=== PATIENT | male | born 1935 | race Caucasian/White ===

== ENCOUNTER 2018-04-29 18:22 | Emergency (ER) | payer MEDICARE, BC ==
[~2018-04-29] VITALS: Ht 175.3 cm; Wt 68.8 kg
[2018-04-29 18:51] VITALS: BP 155/78
[2018-04-29] MEDS ORDERED: TETanus/Pertussis (Acell)/Diphther VAC/PF (Tdap-Adult) 0.5ml syringe IMVAC ONE (20:50)
== END 2018-04-29 21:07 | disposition home or self-care (01) ==
LOC: ER 18:23
DX: S01.81XA Laceration without foreign body of other part of head, initial encounter (principal); M19.90 Unspecified osteoarthritis, unspecified site; Z88.0 Allergy status to penicillin; W22.8XXA Striking against or struck by other objects, initial encounter; Y93.89 Activity, other specified; Y92.89 Other specified places as the place of occurrence of the external cause; Y99.9 Unspecified external cause status
CPT/HCPCS: 12013; 90471; 90715; 99283

== ENCOUNTER 2021-12-23 02:01 | Inpatient (IN) | payer MEDICARE ==
[~2021-12-23] VITALS: Ht 172.7 cm; Wt 81.8 kg
[2021-12-23 09:56] LABS: BASOPHILS % (AUTO) 0.4 % (0-1); EOSINOPHILS % (AUTO) 0 % (0-6); HEMATOCRIT 38.6 % (42.0-52.0); HEMOGLOBIN 13.2 g/dl (14.0-17.9); LYMPHOCYTES # (AUTO) 0.7 X10'3 (1.1-4.8); LYMPHOCYTES % (AUTO) 7.4 % (21-51); MEAN CORPUSCULAR HEMOGLOBIN 32.7 PG (27.0-31.0); MEAN CORPUSCULAR HGB CONC 34.2 g/dL (33.0-36.5); MEAN CORPUSCULAR VOLUME 95.8 FL (78-98); MEAN PLATELET VOLUME 8.3 FL (7.4-10.4); MONOCYTES # (AUTO) 0.8 X10'3 (0-0.9); MONOCYTES % (AUTO) 8.5 % (2-12); NEUTROPHILS # (AUTO) 8.2 X10'3 (1.8-7.7); NEUTROPHILS % (AUTO) 83.7 % (42-75); PLATELET COUNT 361 X10'3 (140-440); RED BLOOD COUNT 4.03 X10'6 (4.70-6.10); RED CELL DISTRIBUTION WIDTH 13.2 % (11.5-14.5); WHITE BLOOD COUNT 9.8 X10'3 (4.5-11.0)
[2021-12-23 10:14] LABS: ALANINE AMINOTRANSFERASE 27 U/L (12-78); ALBUMIN 3.8 G/DL (3.4-5.0); ALBUMIN/GLOBULIN RATIO 0.7 (1.1-1.5); ALKALINE PHOSPHATASE 106 IU/L (46-116); ANION GAP 7 (8-16); ASPARTATE AMINO TRANSFERASE 25 U/L (10-37); BILIRUBIN,TOTAL 0.4 MG/DL (0.1-1.0); BLOOD UREA NITROGEN 23 MG/DL (7-18); BUN/CREATININE RATIO 24.5 (5.4-32.0); CALCIUM 9.6 MG/DL (8.5-10.1); CHLORIDE 105 MMOL/L (99-107); CREATININE 0.94 MG/DL (0.60-1.10); POTASSIUM 4.6 MMOL/L (3.5-5.1); SODIUM 143 MMOL/L (135-145); TOTAL CARBON DIOXIDE 30.6 MMOL/L (24-32); TOTAL PROTEIN 9.3 G/DL (6.4-8.2); eGFR 76 ML/MIN
[2021-12-23 10:15] LABS: GLUCOSE 112 MG/DL (70-104)
[2021-12-23 10:48] LABS: CLARITY,URINE CLEAR (Clear); COLOR,URINE YELLOW (Yellow); GLUCOSE, URINE NEGATIVE (Neg); KETONES,URINE NEGATIVE (Neg); LEUKOCYTE ESTERASE ,URINE NEGATIVE (Neg); NITRITES, URINE NEGATIVE (Neg); OCCULT BLOOD,URINE NEGATIVE (Neg); PROTEIN,URINE NEGATIVE (Neg); UROBILINOGEN,URINE 0.2 E.U/dL (0.2-1.0)
[2021-12-23 10:49] LABS: UA COLLECTION TYPE NON-SPECIFIED
[2021-12-23] MEDS ORDERED: ondansetron 4mg rapidly disintigrating tab PO ONE (11:20)
[2021-12-23] MEDS ORDERED: meclizine 12.5mg tablet PO ONE (11:20)
[2021-12-23] MEDS ORDERED: POTASSIUM BICARB 20meq eff tab 20 MEQ TABLET.EFF PO PRN ×2 (12:25)
[2021-12-23] MEDS ORDERED: PERFLUTREN PROTEIN-A MICROSPHR (Optison) 0.22 MG/ML 3ML VIAL IV ONE (12:25)
[2021-12-23] MEDS ORDERED: mag hydrox/Alum hydrox/simeth 30ml oral suspension PO PRN (12:25)
[2021-12-23] MEDS ORDERED: ondansetron/PF 4mg/2ml inj IV PRN (12:25)
[2021-12-23] MEDS ORDERED: acetaminophen 325mg tablet PO PRN (12:25)
[2021-12-23] MEDS ORDERED: potassium CL 10mEq/100ml bag 100 ML IV PRN (12:25)
[2021-12-23] MEDS ORDERED: magnesium 4gm in 100ml NS 100 ML IV PRN (12:25)
[2021-12-23] MEDS ORDERED: magnesium 2GM in 50ml NS 50 ML IV PRN (12:25)
[2021-12-23] MEDS ORDERED: morphine 2 MG/ML inj. syringe IV PRN (12:25)
[2021-12-23] MEDS ORDERED: magnesium hydroxide 30ml (MOM) UD suspension PO PRN (12:25)
[2021-12-23] MEDS ORDERED: magnesium Cl slow-release 64mg tablet PO PRN (12:25)
[2021-12-23 12:50] LABS: MAGNESIUM 2.8 MG/DL (1.5-2.4)
--- NOTE | 2021-12-23 13:27 | NUR ---
assumed care of pt from Jenny OVALLE, pt is resting quietly on gurney, resp even and unlabored, being evaluated by Dr Dawn, Dr Dawn gave verbal order for one more troponin, neurotele at bedside. Pt amb with slow steady gait using walker
--- NOTE | 2021-12-23 14:03 | NUR ---
PT TO CT
[2021-12-23] MEDS: normal saline 1000ml 1,000 ML IV SCH (14:48)
--- NOTE | 2021-12-23 15:58 | NUR ---
attempted report, nurse will call back
--- NOTE | 2021-12-23 16:42 | NUR ---
Patient in room [facility] 4009. I have received report from Estella and had the opportunity to ask questions and assume patient care. Addendum: 12/23/21 at 1821 by Maricruz Ferrell RN Pt arrived to the floor approximately 1800. Spoke with patient and daughter Dali at bedside.
--- NOTE | 2021-12-23 16:53 | NUR ---
REPORT GIVEN TO MISHA ACEVES
--- NOTE | 2021-12-23 17:25 | NUR ---
pt received in 4009C from ER and tucked into bed. C/O mild neck pain. Medicated in ER. Pt in no distress. IV NS connected to saline lock running at 70mls/hour. Pt given dinner tray. Dtr at bedside.
[2021-12-23 18:00] VITALS: BP 152/72
--- NOTE | 2021-12-23 18:36 | NUR ---
During assessment of patient, patient was able to eat his meal/drink fluids without any issues.
--- NOTE | 2021-12-23 18:38 | NUR ---
Problems reprioritized. Patient report given, questions answered & plan of care reviewed with
--- NOTE | 2021-12-23 19:47 | NUR ---
REASSMT OF MORPHINE GIVEN EARLIER NOT DOCUMENTED. PATIENT ASKING FOR NORCO, WHICH IS WHAT HE TAKES NORMALLY AT HOME. WILL NEED TO CALL HOSPITALIST TO GET THIS ORDERED FOR HIM
[2021-12-23] MEDS: K and/or MAG REPLACEMENT MC SCH (20:00)
[2021-12-23] MEDS: HYDROcodone/acetaminophen 5mg/325mg tablet PO PRN (20:14)
[2021-12-23] MEDS: docusate sod 100mg capsule PO SCH (20:15)
[2021-12-23 22:00] VITALS: BP 126/70
[2021-12-24] MEDS: normal saline 1000ml 1,000 ML IV SCH (02:43)
[2021-12-24] MEDS: HYDROcodone/acetaminophen 5mg/325mg tablet PO PRN ×2 (03:21→09:46)
[2021-12-24 06:00] VITALS: BP 133/57
--- NOTE | 2021-12-24 06:29 | NUR ---
Problems reprioritized. Patient report given, questions answered & plan of care reviewed with JUANITO OVALLE.
--- NOTE | 2021-12-24 06:47 | NUR ---
Patient in room [facility]TH[facility] 4009. I have received report from Bisi ACEVES and had the opportunity to ask questions and assume patient care.
[2021-12-24 07:01] LABS: BASOPHILS % (AUTO) 0.5 % (0-1); EOSINOPHILS % (AUTO) 0.5 % (0-6); HEMOGLOBIN 11.2 g/dl (14.0-17.9); LYMPHOCYTES # (AUTO) 0.9 X10'3 (1.1-4.8); LYMPHOCYTES % (AUTO) 12.7 % (21-51); MEAN CORPUSCULAR HEMOGLOBIN 32.5 PG (27.0-31.0); MEAN CORPUSCULAR HGB CONC 33.8 g/dL (33.0-36.5); MEAN PLATELET VOLUME 8.9 FL (7.4-10.4); MONOCYTES # (AUTO) 0.9 X10'3 (0-0.9); MONOCYTES % (AUTO) 11.9 % (2-12); NEUTROPHILS # (AUTO) 5.5 X10'3 (1.8-7.7); NEUTROPHILS % (AUTO) 74.4 % (42-75); PLATELET COUNT 276 X10'3 (140-440); RED BLOOD COUNT 3.44 X10'6 (4.70-6.10); RED CELL DISTRIBUTION WIDTH 13.3 % (11.5-14.5); WHITE BLOOD COUNT 7.4 X10'3 (4.5-11.0)
[2021-12-24 07:02] LABS: ALBUMIN 3.1 G/DL (3.4-5.0); ANION GAP 6 (8-16); BLOOD UREA NITROGEN 21 MG/DL (7-18); BUN/CREATININE RATIO 23.6 (5.4-32.0); CALCIUM 8.9 MG/DL (8.5-10.1); CHLORIDE 109 MMOL/L (99-107); CREATININE 0.89 MG/DL (0.60-1.10); GLUCOSE 86 MG/DL (70-104); POTASSIUM 3.9 MMOL/L (3.5-5.1); SODIUM 145 MMOL/L (135-145); TOTAL CARBON DIOXIDE 30.1 MMOL/L (24-32); eGFR 81 ML/MIN
[2021-12-24] MEDS: docusate sod 100mg capsule PO SCH (07:30)
[2021-12-24] MEDS: K and/or MAG REPLACEMENT MC SCH (07:32)
[2021-12-24] MEDS ORDERED: enoxaparin 40mg/0.4ml syringe SUBCUT SCH (08:00)
[2021-12-24 10:00] VITALS: BP 114/60
[2021-12-24] MEDS ORDERED: IBUP-1986 PO (14:10)
--- NOTE | 2021-12-24 15:39 | NUR ---
Patient was discharge home with family. Discharge information was discussed with patient and family whom both verbalized understanding. Staff then assisted patient to personal vehicle.
[2021-12-24] MEDS ORDERED: HYDR-3965 PO (17:53)
--- NOTE | 2021-12-24 18:33 | NUR ---
Student documentation: I have reviewed and agree with all interventions, assessments performed and documented by Sushma OVALLE.
== END 2021-12-24 15:39 | disposition home or self-care (01) | DRG 562 ==
LOC: ER 02:03 → ED HOLD 12:28 → ORTHO 4S 17:09
PROVIDERS: ADMIT Family Medicine; ATTEND Family Medicine
DX: S42.001A Fracture of unspecified part of right clavicle, initial encounter for closed fracture (principal); I21.A1 Myocardial infarction type 2; E86.0 Dehydration; M15.9 Polyosteoarthritis, unspecified; R29.6 Repeated falls; W18.39XA Other fall on same level, initial encounter; Y93.89 Activity, other specified; Y92.89 Other specified places as the place of occurrence of the external cause; Y99.8 Other external cause status; Z88.0 Allergy status to penicillin; Z88.8 Allergy status to other drugs, medicaments and biological substances
CPT/HCPCS: 36415; 70450; 70551; 71045; 72125; 73030; 80048; 80053; 81003; 83735; 84484; 85025; 87081; 93306; 97116; 97162; 97530; 99285; G0378; J1650; J2270; J7030; J8597

== ENCOUNTER 2023-05-09 18:19 | Inpatient (IN) | payer MEDICARE ==
[~2023-05-09] VITALS: Ht 175.3 cm; Wt 79.1 kg
[~2023-05-09 18:19] MED LIST: IBUP-1986 PO
--- NOTE | 2023-05-09 20:07 | NUR ---
pt headed to ct, nursing assessment not yet complete
[2023-05-09 20:19] LABS: BASOPHILS % (AUTO) 0.6 % (0-1); HEMATOCRIT 33.2 % (42.0-52.0); LYMPHOCYTES # (AUTO) 0.6 X10'3 (1.1-4.8); MONOCYTES # (AUTO) 1.3 X10'3 (0-0.9); NEUTROPHILS # (AUTO) 4.1 X10'3 (1.8-7.7)
[2023-05-09 20:21] LABS: EOSINOPHILS % (AUTO) 0 % (0-6); HEMOGLOBIN 11.1 g/dl (14.0-17.9); LYMPHOCYTES % (AUTO) 10.3 % (21-51); MEAN CORPUSCULAR HEMOGLOBIN 32.6 PG (27.0-31.0); MEAN CORPUSCULAR HGB CONC 33.4 g/dL (33.0-36.5); MEAN CORPUSCULAR VOLUME 97.8 FL (78-98); MEAN PLATELET VOLUME 8.6 FL (7.4-10.4); MONOCYTES % (AUTO) 21.4 % (2-12); NEUTROPHILS % (AUTO) 67.7 % (42-75); PLATELET COUNT 208 X10'3 (140-440); RED CELL DISTRIBUTION WIDTH 13.5 % (11.5-14.5)
[2023-05-09 20:26] LABS: APTT 28 SECONDS (22-32); INR 1.1 INR; PROTHROMBIN TIME 11.5 SECONDS (9.0-12.0)
[2023-05-09 20:28] LABS: ALANINE AMINOTRANSFERASE 28 U/L (12-78); ALBUMIN 3.1 G/DL (3.4-5.0); ALBUMIN/GLOBULIN RATIO 0.5 (1.1-1.5); ALKALINE PHOSPHATASE 81 IU/L (46-116); ANION GAP 6 (8-16); ASPARTATE AMINO TRANSFERASE 31 U/L (10-37); BILIRUBIN,TOTAL 0.5 MG/DL (0.1-1.0); BLOOD UREA NITROGEN 27 MG/DL (7-18); BUN/CREATININE RATIO 22.3 (10.0-20.0); CALCIUM 9.1 MG/DL (8.5-10.1); CHLORIDE 103 MMOL/L (99-107); CREATININE 1.21 MG/DL (0.60-1.10); POTASSIUM 4.6 MMOL/L (3.5-5.1); SODIUM 136 MMOL/L (135-145); TOTAL CARBON DIOXIDE 27.2 MMOL/L (24-32); eCRCL 41 ML/MIN; eGFR 56 ML/MIN
[2023-05-09 20:41] LABS: GLUCOSE 98 MG/DL (70-104)
[2023-05-09 21:59] LABS: ETHANOL < 10 MG/DL (<10)
[2023-05-09 22:07] LABS: BILIRUBIN,URINE NEGATIVE (Neg); CLARITY,URINE CLEAR (Clear); GLUCOSE, URINE NEGATIVE (Neg); KETONES,URINE NEGATIVE (Neg); LEUKOCYTE ESTERASE ,URINE NEGATIVE (Neg); NITRITES, URINE NEGATIVE (Neg); OCCULT BLOOD,URINE NEGATIVE (Neg); PROTEIN,URINE TRACE mg/dl (Neg)
[2023-05-09 22:08] LABS: COLOR,URINE DARK YELLOW (Yellow); UA COLLECTION TYPE NON-SPECIFIED
[2023-05-09 22:14] LABS: BACTERIA,URINE FEW /HPF (Neg); HYALINE CASTS 0-3 /LPF (NEGATIVE); MUCUS STRANDS MANY /LPF (Neg); RBC,URINE 0-2 /HPF (0-2); SQUAMOUS EPITHELIAL CELL,UR FEW /LPF (FEW); WBC,URINE 0-4 /HPF (0-4)
[2023-05-09 22:16] LABS: TRANSITIONAL EPI CELLS,URINE FEW /HPF
[2023-05-09] MEDS ORDERED: morphine 2 MG/ML inj. syringe IV ONE (22:30)
[2023-05-09] MEDS ORDERED: magnesium 2GM in 50ml NS 50 ML IV PRN (22:35)
[2023-05-09] MEDS ORDERED: ondansetron/PF 4mg/2ml inj IV PRN (22:35)
[2023-05-09] MEDS ORDERED: magnesium 4gm in 100ml NS 100 ML IV PRN (22:35)
[2023-05-09] MEDS ORDERED: potassium Cl 40MEQ/1/2NS 520ml 520 ML IV PRN (22:35)
[2023-05-09] MEDS ORDERED: potassium Cl 20 mEq SR tablet PO PRN ×2 (22:35)
[2023-05-09] MEDS ORDERED: magnesium Cl slow-release 64mg tablet PO PRN (22:35)
[2023-05-09] MEDS ORDERED: magnesium hydroxide 30ml (MOM) UD suspension PO PRN (22:35)
[2023-05-09] MEDS ORDERED: mag hydrox/Alum hydrox/simeth 30ml oral suspension PO PRN (22:35)
--- NOTE | 2023-05-09 22:49 | NUR ---
Patient placed on hospital bed for comfort.
--- NOTE | 2023-05-09 23:33 | NUR ---
pt here for general weakness associated with incontinence per daughter, daughter states he has been seeing numbers on things that do not have numbers and noticed this morning his change in condition
--- NOTE | 2023-05-09 23:46 | NUR ---
Checked in with patient and family to ensure patient pain under control after morphine and placement onto hospital bed. Patient much more comfortable, falling asleep. Patient family encouraged to go home and get sleep. ER direct line given to them to call for updates.
[2023-05-10] MEDS: morphine 2 MG/ML inj. syringe IV PRN ×2 (04:59→15:36)
--- NOTE | 2023-05-10 07:15 | NUR ---
Patient in room [facility]TH[facility] 4012. I have received report from James and had the opportunity to ask questions and assume patient care.
[2023-05-10 07:20] VITALS: BP 117/58; PULSE 69; RESP 19; TEMP 97.3; O2SAT 93
[2023-05-10] MEDS: K and/or MAG REPLACEMENT MC SCH ×2 (07:25→19:22)
[2023-05-10] MEDS ORDERED: enoxaparin 40mg/0.4ml syringe SUBCUT SCH (08:00)
[2023-05-10] MEDS: docusate sod 100mg capsule PO SCH ×2 (08:23→20:00)
[2023-05-10 08:46] LABS: EOSINOPHILS % (AUTO) 0.1 % (0-6); HEMOGLOBIN 10.4 g/dl (14.0-17.9); MEAN PLATELET VOLUME 8.6 FL (7.4-10.4); NEUTROPHILS # (AUTO) 2.3 X10'3 (1.8-7.7); RED BLOOD COUNT 3.21 X10'6 (4.70-6.10); WHITE BLOOD COUNT 4.1 X10'3 (4.5-11.0)
[2023-05-10 08:48] LABS: BASOPHILS % (AUTO) 0.8 % (0-1); HEMATOCRIT 31.2 % (42.0-52.0); LYMPHOCYTES # (AUTO) 0.7 X10'3 (1.1-4.8); LYMPHOCYTES % (AUTO) 17.8 % (21-51); MEAN CORPUSCULAR HEMOGLOBIN 32.5 PG (27.0-31.0); MEAN CORPUSCULAR HGB CONC 33.4 g/dL (33.0-36.5); MEAN CORPUSCULAR VOLUME 97.3 FL (78-98); MONOCYTES # (AUTO) 1.1 X10'3 (0-0.9); MONOCYTES % (AUTO) 26.2 % (2-12); NEUTROPHILS % (AUTO) 55.1 % (42-75); PLATELET COUNT 183 X10'3 (140-440)
[2023-05-10 09:02] LABS: ALANINE AMINOTRANSFERASE 22 U/L (12-78); ALBUMIN 2.7 G/DL (3.4-5.0); ALBUMIN/GLOBULIN RATIO 0.5 (1.1-1.5); ALKALINE PHOSPHATASE 71 IU/L (46-116); ANION GAP 5 (8-16); ASPARTATE AMINO TRANSFERASE 41 U/L (10-37); BILIRUBIN,TOTAL 0.5 MG/DL (0.1-1.0); BLOOD UREA NITROGEN 22 MG/DL (7-18); CALCIUM 8.5 MG/DL (8.5-10.1); CHLORIDE 104 MMOL/L (99-107); CHOL/HDL RATIO 2.3 (0.00-4.99); CHOLESTEROL 90 MG/DL (0-200); HDL CHOLESTEROL 39 MG/DL (35-60); LDL CHOLESTEROL 45 MG/DL (50-100); MAGNESIUM 2.2 MG/DL (1.5-2.4); POTASSIUM 3.9 MMOL/L (3.5-5.1); SODIUM 136 MMOL/L (135-145); TOTAL CARBON DIOXIDE 26.7 MMOL/L (24-32); TOTAL PROTEIN 8.3 G/DL (6.4-8.2); TRIGLYCERIDES 26 MG/DL (20-135); eCRCL 50 ML/MIN; eGFR 70 ML/MIN
[2023-05-10 09:04] LABS: GLUCOSE 83 MG/DL (70-104)
[2023-05-10 10:17] VITALS: BP 107/51; PULSE 79; RESP 14; TEMP 97.5; O2SAT 95
[2023-05-10] MEDS ORDERED: GABA-530 PO (11:37)
--- NOTE | 2023-05-10 12:21 | NUR ---
Pt to MRI
[2023-05-10 14:24] VITALS: BP 106/52; PULSE 88; RESP 18; TEMP 97.7; O2SAT 95
[2023-05-10 18:00] VITALS: BP 113/53; PULSE 75; RESP 13; TEMP 97.5; O2SAT 91
[2023-05-10] MEDS ORDERED: dexamethasone 4mg tablet PO ONE ×2 (18:10)
[2023-05-10] MEDS ORDERED: DEXAMETHASONE 6 MG TABLET PO ONE (18:15)
--- NOTE | 2023-05-10 18:34 | NUR ---
Problems reprioritized. Patient report given, questions answered & plan of care reviewed with
[2023-05-10 20:00] VITALS: RESP 16; O2SAT 93
[2023-05-10] MEDS: enoxaparin 40mg/0.4ml syringe SUBCUT SCH (20:56)
[2023-05-10] MEDS ORDERED: gabapentin 300mg capsule PO SCH (21:00)
[2023-05-10 22:00] VITALS: BP 121/61; PULSE 72; RESP 16; TEMP 97.9; O2SAT 93
[2023-05-11] MEDS: acetaminophen 325mg tablet PO PRN ×2 (03:30→14:13)
[2023-05-11 05:59] LABS: D-DIMER 0.87 MG/L FEU (0-0.50)
[2023-05-11 06:00] VITALS: BP 127/55; PULSE 60; RESP 16; TEMP 98.2
[2023-05-11 06:02] LABS: BASOPHILS % (AUTO) 0.7 % (0-1); EOSINOPHILS % (AUTO) 0.1 % (0-6); HEMATOCRIT 32.1 % (42.0-52.0); HEMOGLOBIN 10.9 g/dl (14.0-17.9); LYMPHOCYTES # (AUTO) 0.4 X10'3 (1.1-4.8); LYMPHOCYTES % (AUTO) 14.8 % (21-51); MEAN CORPUSCULAR HGB CONC 33.9 g/dL (33.0-36.5); MEAN CORPUSCULAR VOLUME 97.2 FL (78-98); MEAN PLATELET VOLUME 9.4 FL (7.4-10.4); MONOCYTES # (AUTO) 0.3 X10'3 (0-0.9); MONOCYTES % (AUTO) 9.4 % (2-12); NEUTROPHILS # (AUTO) 2.2 X10'3 (1.8-7.7); PLATELET COUNT 181 X10'3 (140-440); RED CELL DISTRIBUTION WIDTH 13.4 % (11.5-14.5); WHITE BLOOD COUNT 2.9 X10'3 (4.5-11.0)
[2023-05-11 06:09] LABS: % IRON SATURATION 11 % (11-46); IRON 21 UG/DL (53-167); TOTAL IRON BINDING CAPACITY 189 UG/DL (259-388)
[2023-05-11] MEDS: morphine 2 MG/ML inj. syringe IV PRN (06:31)
[2023-05-11 06:47] LABS: ALANINE AMINOTRANSFERASE 29 U/L (12-78); ALBUMIN 2.5 G/DL (3.4-5.0); ALBUMIN/GLOBULIN RATIO 0.4 (1.1-1.5); ALKALINE PHOSPHATASE 70 IU/L (46-116); ANION GAP 8 (8-16); ASPARTATE AMINO TRANSFERASE 49 U/L (10-37); BILIRUBIN,TOTAL 0.4 MG/DL (0.1-1.0); BLOOD UREA NITROGEN 22 MG/DL (7-18); BUN/CREATININE RATIO 27.8 (10.0-20.0); C-REACTIVE PROTEIN 4.51 MG/DL (0.0-0.5); CALCIUM 8.4 MG/DL (8.5-10.1); CHLORIDE 102 MMOL/L (99-107); CREATININE 0.79 MG/DL (0.60-1.10); FERRITIN 146 NG/ML (26-388); LACTATE DEHYDROGENASE 117 U/L (85-227); MAGNESIUM 2.1 MG/DL (1.5-2.4); SODIUM 134 MMOL/L (135-145); TOTAL CARBON DIOXIDE 24.1 MMOL/L (24-32); TOTAL PROTEIN 8.1 G/DL (6.4-8.2); eCRCL 63 ML/MIN; eGFR > 90 ML/MIN
[2023-05-11 06:57] LABS: GLUCOSE 103 MG/DL (70-104)
[2023-05-11 08:00] VITALS: RESP 20
[2023-05-11] MEDS ORDERED: DEXAMETHASONE 6 MG TABLET PO SCH (08:00)
[2023-05-11] MEDS: docusate sod 100mg capsule PO SCH (08:00)
[2023-05-11] MEDS: K and/or MAG REPLACEMENT MC SCH (08:00)
[2023-05-11] MEDS ORDERED: aspirin 81mg tab.chew PO SCH (08:30)
[2023-05-11] MEDS: enoxaparin 40mg/0.4ml syringe SUBCUT SCH (08:30)
[2023-05-11 10:00] VITALS: BP 132/63; PULSE 71; RESP 20; TEMP 97.9; O2SAT 99
[2023-05-11 10:07] LABS: PLATELET ESTIMATE NORMAL; TOTAL CELLS COUNTED 100
[2023-05-11 10:09] LABS: ROULEAUX 1+
[2023-05-11] MEDS ORDERED: normal saline 1000ml 1,000 ML IVB ONE (13:15)
[2023-05-11] MEDS ORDERED: ACET-1008 PO (14:23)
[2023-05-11] MEDS ORDERED: ASPI81TA53 PO (14:23)
[2023-05-11] MEDS ORDERED: DEXA6TAB PO (14:23)
[2023-05-11] MEDS ORDERED: AZIT500T PO (15:27)
--- NOTE | 2023-05-11 18:41 | NUR ---
Agree with assessment by Phoebe ACEVES
== END 2023-05-11 17:40 | disposition home or self-care (01) | DRG 178 ==
LOC: ER 18:19 → ED HOLD 22:40 → EDBEDREQ 05-10 02:07 → ORTHO 4S 05-10 07:10
PROVIDERS: ADMIT Internal Medicine; ATTEND Family Medicine
DX: U07.1 COVID-19 (principal); G45.9 Transient cerebral ischemic attack, unspecified; J98.11 Atelectasis; D64.9 Anemia, unspecified; M17.12 Unilateral primary osteoarthritis, left knee; M19.041 Primary osteoarthritis, right hand; G89.29 Other chronic pain; N19 Unspecified kidney failure; Z88.0 Allergy status to penicillin; Z87.891 Personal history of nicotine dependence
CPT/HCPCS: 36415; 70450; 70551; 71045; 80053; 80061; 80320; 81001; 82607; 82728; 83036; 83540; 83550; 83615; 83735; 84484; 85007; 85025; 85379; 85610; 85730; 86140; 87081; 87811; 97161; 97530; 99291; G0378; J1650; J2270; J7030; J8540